=== PATIENT | male | born 1965 | race Caucasian/White ===

== ENCOUNTER 2016-11-17 04:51 | Emergency (ER) | payer SELFPAY ==
[~2016-11-17] VITALS: Ht 175.3 cm; Wt 88.6 kg
[2016-11-17] MEDS ORDERED: METF500T7 PO (05:06)
[2016-11-17] MEDS ORDERED: GLIP5 PO (05:06)
[2016-11-17 05:12] LABS: GLUCOSE,POINT OF CARE 271 MG/DL (70-110)
[2016-11-17] MEDS ORDERED: LIDOCAINE HCL BUFFERED 1% 20 ML VIAL INJ ONE (06:30)
[2016-11-17 06:56] VITALS: BP 128/78
[2016-11-17] MEDS ORDERED: POVIDONE-IODINE 10% 120 ML SOLUTION TP ONE (07:00)
[2016-11-17] MEDS ORDERED: OxyCODONE HCL/ACETAMINOPHEN 5-325 MG TABLET PO ONE (07:30)
[2016-11-17] MEDS ORDERED: SULFAMETHOX/TRIMETH DS 800-160 MG/TABLET PO ONE (07:30)
[2016-11-17] MEDS ORDERED: CEPHALEXIN MONOHYDRATE 500 MG CAPSULE PO ONE (07:30)
== END 2016-11-17 07:38 | disposition home or self-care (01) ==
LOC: EMS 04:52
DX: L02.31 Cutaneous abscess of buttock (principal); E11.9 Type 2 diabetes mellitus without complications; F12.90 Cannabis use, unspecified, uncomplicated; F15.90 Other stimulant use, unspecified, uncomplicated; Z87.891 Personal history of nicotine dependence
CPT/HCPCS: 10060; 82962; 99284; J3490

== ENCOUNTER 2017-03-11 15:38 | Outpatient (RCR) | payer BC ==
[~2017-03-11 15:38] MED LIST: GLIP5 PO; METF500T7 PO
== END 2017-04-03 | disposition home or self-care (01) ==
LOC: SPT 15:38
PROVIDERS: ATTEND Internal Medicine
DX: F80.9 Developmental disorder of speech and language, unspecified (principal); S06.9X0D Unspecified intracranial injury without loss of consciousness, subsequent encounter; X58.XXXD Exposure to other specified factors, subsequent encounter
CPT/HCPCS: 92507; 92523

== ENCOUNTER 2017-04-13 12:26 | Inpatient (IN) | payer BC ==
[~2017-04-13] VITALS: Ht 175.3 cm; Wt 79.7 kg
[~2017-04-13 12:26] MED LIST changes: -ATOR20TA86 PO; -BACTDSB PO; -GLYB5 PO; -HUM10VIA SQ; -METF500T4 PO
[2017-04-13 12:42] LABS: GLUCOSE,POINT OF CARE 302 MG/DL (70-110)
[2017-04-13] MEDS ORDERED: ATOR20TA86 PO (12:44)
[2017-04-13] MEDS ORDERED: HUM10VIA SQ (12:44)
[2017-04-13] MEDS ORDERED: GLYB5 PO (12:44)
[2017-04-13] MEDS ORDERED: METF500T4 PO (12:51)
[2017-04-13 12:53] LABS: BASOPHILS % (AUTO) 0.2 % (0.0-2.0); EOSINOPHILS % (AUTO) 1.8 % (1.0-6.0); HEMATOCRIT 32.1 % (41-53); HEMOGLOBIN 10.4 g/dL (13.5-17.5); LYMPHOCYTES # (AUTO) 1.9 K/uL (1.0-4.8); LYMPHOCYTES % (AUTO) 10.6 % (22.0-44.0); MEAN CORPUSCULAR HEMOGLOBIN 25.6 pg (26.0-34.0); MEAN CORPUSCULAR HGB CONC 32.5 G/dL (31.0-37.0); MEAN CORPUSCULAR VOLUME 79 fL (80-100); MONOCYTES # (AUTO) 0.9 K/uL (0.1-1.0); MONOCYTES % (AUTO) 5.2 % (2.0-9.0); NEUTROPHILS # (AUTO) 14.3 K/uL (1.8-7.7); NEUTROPHILS % (AUTO) 82.2 % (40.0-70.0); PLATELET COUNT (AUTO) 291 K/uL (150-450); RED BLOOD CELL COUNT(AUTO) 4.07 MIL/uL (4.50-5.90); RED CELL DISTRIBUTION WIDTH 16.3 % (11.5-14.5); WHITE BLOOD COUNT (AUTO) 17.4 K/uL (4.5-11.0)
[2017-04-13 13:06] LABS: INR 1.2 (0.9-1.1); PROTHROMBIN TIME 12.8 SEC (9.4-11.6)
[2017-04-13 13:14] LABS: ANION GAP 7 mmol/L (8-16); CALCIUM, TOTAL 9.3 mg/dL (8.8-10.5); CARBON DIOXIDE 31 mmol/L (22-29); CHLORIDE 94 mmol/L (98-107); CREATININE 0.96 mg/dL (0.60-1.30); GLOMERULAR FILTR. RATE CALC > 60 mL/min (>60); POTASSIUM 4.2 mmol/L (3.5-5.1); SODIUM SERUM 132 mmol/L (136-145); UREA NITROGEN, BLOOD 12 mg/dL (7-18)
[2017-04-13 13:19] LABS: ALANINE AMINOTRANSFERASE 43 U/L (12-78); ALBUMIN 2.7 g/dL (3.4-5.0); ASPARTATE AMINOTRANSFERASE 55 U/L (15-37); BILIRUBIN,TOTAL 0.5 mg/dL (0.1-1.0); TOTAL PROTEIN, SERUM 8.6 g/dL (6.4-8.2)
[2017-04-13] MEDS ORDERED: ONDANSETRON HCL 4 MG/2 ML VIAL IVP ONE (15:15)
[2017-04-13] MEDS ORDERED: MORPHINE SULFATE 4 MG/ML SYRINGE IVP ONE (15:15)
[2017-04-13] MEDS ORDERED: MORPHINE SULFATE 4 MG/ML SYRINGE IVP PRN (15:30)
[2017-04-13] MEDS ORDERED: 0.9% SODIUM CHLORIDE 10 ML SYRINGE IVP PRN (15:30)
[2017-04-13] MEDS ORDERED: ONDANSETRON HCL 4 MG/2 ML VIAL IVP PRN (15:30)
[2017-04-13] MEDS ORDERED: ACETAMINOPHEN 325 MG TABLET PO PRN ×2 (15:30→20:45)
[2017-04-13] MEDS ORDERED: HYDROCODONE/ACETAMINOPHEN 5-325 MG TABLET PO PRN (15:30)
[2017-04-13 16:10] VITALS: BP 112/60
[2017-04-13] MEDS ORDERED: DEXTROSE 50%-WATER 25 GM/50 ML SYRINGE IVP PRN (16:30)
[2017-04-13] MEDS: INSULIN ASPART 100 UNITS/ML SQ PRN ×2 (18:04→21:18)
[2017-04-13] MEDS ORDERED: INFLUENZA VIRUS VACCINE QVS 2017-18 (3YR+)/PF 60 MCG/0.5 ML SYRINGE IM ONE (19:15)
[2017-04-13 19:21] VITALS: BP 109/56
[2017-04-13] MEDS ORDERED: MAGNESIUM HYDROXIDE SUSPENSION 30 ML UDCUP PO PRN (20:45)
[2017-04-13] MEDS: DOCUSATE SODIUM 100 MG CAPSULE PO SCH (21:20)
[2017-04-13 21:32] LABS: GLUCOSE,POINT OF CARE 192 MG/DL (70-110)
[2017-04-13 22:30] LABS: APPEARANCE,URINE CLEAR (CLEAR); GLUCOSE, URINE (UA) NEGATIVE (NEGATIVE); KETONES,URINE NEGATIVE (NEGATIVE); LEUKOCYTE ESTERASE ,URINE SMALL (NEGATIVE); OCCULT BLOOD,URINE NEGATIVE (NEGATIVE); PROTEIN,URINE TRACE (NEGATIVE)
[2017-04-13 22:31] LABS: ADD UA MICROSCOPIC YES
[2017-04-13 22:32] LABS: RBC,URINE 0-2 /HPF (0-2); SQUAMOUS EPITHELIAL CELL,UR Few /LPF (None Seen)
[2017-04-13 23:31] VITALS: BP 100/52
[2017-04-14 04:00] VITALS: BP 97/53
[2017-04-14 05:52] LABS: GLUCOSE COMMENT 1 Received Meds; GLUCOSE,POINT OF CARE 215 MG/DL (70-110)
[2017-04-14 07:10] LABS: BASOPHILS % (AUTO) 0.3 % (0.0-2.0); HEMATOCRIT 27.7 % (41-53); HEMOGLOBIN 9.1 g/dL (13.5-17.5); LYMPHOCYTES # (AUTO) 1.5 K/uL (1.0-4.8); LYMPHOCYTES % (AUTO) 10.5 % (22.0-44.0); MEAN CORPUSCULAR HEMOGLOBIN 25.6 pg (26.0-34.0); MEAN CORPUSCULAR HGB CONC 32.8 G/dL (31.0-37.0); MEAN CORPUSCULAR VOLUME 78 fL (80-100); MONOCYTES # (AUTO) 1.2 K/uL (0.1-1.0); MONOCYTES % (AUTO) 8.3 % (2.0-9.0); NEUTROPHILS # (AUTO) 11.2 K/uL (1.8-7.7); NEUTROPHILS % (AUTO) 77.9 % (40.0-70.0); PLATELET COUNT (AUTO) 224 K/uL (150-450); RED BLOOD CELL COUNT(AUTO) 3.54 MIL/uL (4.50-5.90); RED CELL DISTRIBUTION WIDTH 16.5 % (11.5-14.5); WHITE BLOOD COUNT (AUTO) 14.4 K/uL (4.5-11.0)
[2017-04-14 07:15] VITALS: BP 114/56
[2017-04-14 07:19] LABS: INR 1.2 (0.9-1.1); PROTHROMBIN TIME 12.4 SEC (9.4-11.6)
[2017-04-14 07:31] LABS: ALANINE AMINOTRANSFERASE 32 U/L (12-78); ALBUMIN 2.2 g/dL (3.4-5.0); ANION GAP 5 mmol/L (8-16); ASPARTATE AMINOTRANSFERASE 36 U/L (15-37); BILIRUBIN,TOTAL 0.3 mg/dL (0.1-1.0); CALCIUM, TOTAL 8.8 mg/dL (8.8-10.5); CARBON DIOXIDE 32 mmol/L (22-29); CHLORIDE 97 mmol/L (98-107); CREATININE 0.69 mg/dL (0.60-1.30); GLOMERULAR FILTR. RATE CALC > 60 mL/min (>60); SODIUM SERUM 134 mmol/L (136-145); TOTAL PROTEIN, SERUM 7.5 g/dL (6.4-8.2); UREA NITROGEN, BLOOD 10 mg/dL (7-18)
[2017-04-14] MEDS: PANTOPRAZOLE SODIUM 40 MG DR TABLET PO SCH (08:33)
[2017-04-14] MEDS: DOCUSATE SODIUM 100 MG CAPSULE PO SCH ×2 (08:33→20:18)
[2017-04-14] MEDS ORDERED: GADOBUTROL 1 MMOL/ML 10 ML VIAL IVP ONE (09:39)
[2017-04-14] MEDS: OxyCODONE HCL/ACETAMINOPHEN 5-325 MG TABLET PO PRN ×2 (11:35→18:23)
[2017-04-14 11:43] VITALS: BP 109/55
[2017-04-14] MEDS: INSULIN ASPART 100 UNITS/ML SQ PRN ×3 (12:45→20:25)
[2017-04-14 16:08] VITALS: BP 110/60
[2017-04-14 20:00] VITALS: BP 104/51
[2017-04-14 23:15] VITALS: BP 112/60
[2017-04-15 01:48] LABS: GLUCOSE,POINT OF CARE 194 MG/DL (70-110)
[2017-04-15 01:52] LABS: GLUCOSE COMMENT 1 Received Meds; GLUCOSE,POINT OF CARE 196 MG/DL (70-110)
[2017-04-15 01:53] LABS: GLUCOSE COMMENT 1 Received Meds; GLUCOSE,POINT OF CARE 186 MG/DL (70-110)
[2017-04-15 01:53] LABS: GLUCOSE,POINT OF CARE 218 MG/DL (70-110)
[2017-04-15 04:21] VITALS: BP 109/63
[2017-04-15] MEDS: OxyCODONE HCL/ACETAMINOPHEN 5-325 MG TABLET PO PRN ×2 (05:35→19:44)
[2017-04-15] MEDS: INSULIN ASPART 100 UNITS/ML SQ PRN ×4 (05:38→19:49)
[2017-04-15 06:51] LABS: BASOPHILS # (AUTO) 0.06 K/uL (0.00-0.20); BASOPHILS % (AUTO) 0.4 % (0.0-2.0); EOSINOPHILS # (AUTO) 0.35 K/uL (0.00-0.70); EOSINOPHILS % (AUTO) 2.29 % (1.0-6.0); HEMATOCRIT 26.8 % (41-53); HEMOGLOBIN 8.8 g/dL (13.5-17.5); LYMPHOCYTES # (AUTO) 1.8 K/uL (1.0-4.8); LYMPHOCYTES % (AUTO) 11.3 % (22.0-44.0); MEAN CORPUSCULAR HEMOGLOBIN 25.4 pg (26.0-34.0); MEAN CORPUSCULAR HGB CONC 32.7 G/dL (31.0-37.0); MEAN CORPUSCULAR VOLUME 78 fL (80-100); MONOCYTES # (AUTO) 1.1 K/uL (0.1-1.0); MONOCYTES % (AUTO) 7.1 % (2.0-9.0); NEUTROPHILS # (AUTO) 12.2 K/uL (1.8-7.7); PLATELET COUNT (AUTO) 184 K/uL (150-450); RED BLOOD CELL COUNT(AUTO) 3.45 MIL/uL (4.50-5.90); RED CELL DISTRIBUTION WIDTH 15.8 % (11.5-14.5); WHITE BLOOD COUNT (AUTO) 15.5 K/uL (4.5-11.0)
[2017-04-15 07:43] VITALS: BP 116/54
[2017-04-15 08:30] LABS: RBC MORPHOLOGY COMMENT ABNORMAL RBC MORPH
[2017-04-15 09:00] LABS: GLUCOSE COMMENT 1 Received Meds; GLUCOSE,POINT OF CARE 203 MG/DL (70-110)
[2017-04-15] MEDS: PANTOPRAZOLE SODIUM 40 MG DR TABLET PO SCH (09:46)
[2017-04-15] MEDS: DOCUSATE SODIUM 100 MG CAPSULE PO SCH ×2 (09:46→19:44)
[2017-04-15 11:45] VITALS: BP 101/59
[2017-04-15 15:32] LABS: GLUCOSE,POINT OF CARE 186 MG/DL (70-110)
[2017-04-15 15:48] VITALS: BP 113/57
[2017-04-15] MEDS: CEPHALEXIN MONOHYDRATE 500 MG CAPSULE PO SCH ×2 (16:13→23:37)
[2017-04-15 20:22] VITALS: BP 105/53
[2017-04-16] VITALS (7 sets, daily range): BP systolic 96–114; BP diastolic 43–59
[2017-04-16] MEDS: INSULIN ASPART 100 UNITS/ML SQ PRN ×4 (05:54→20:56)
[2017-04-16 06:07] LABS: BASOPHILS % (AUTO) 0.5 % (0.0-2.0); EOSINOPHILS % (AUTO) 2.1 % (1.0-6.0); HEMATOCRIT 26.8 % (41-53); HEMOGLOBIN 8.9 g/dL (13.5-17.5); LYMPHOCYTES # (AUTO) 1.7 K/uL (1.0-4.8); LYMPHOCYTES % (AUTO) 10.6 % (22.0-44.0); MEAN CORPUSCULAR HEMOGLOBIN 26.5 pg (26.0-34.0); MEAN CORPUSCULAR HGB CONC 33.3 G/dL (31.0-37.0); MEAN CORPUSCULAR VOLUME 80 fL (80-100); MONOCYTES # (AUTO) 1.2 K/uL (0.1-1.0); MONOCYTES % (AUTO) 7.1 % (2.0-9.0); NEUTROPHILS # (AUTO) 13.2 K/uL (1.8-7.7); NEUTROPHILS % (AUTO) 79.7 % (40.0-70.0); PLATELET COUNT (AUTO) 166 K/uL (150-450); RED BLOOD CELL COUNT(AUTO) 3.36 MIL/uL (4.50-5.90); RED CELL DISTRIBUTION WIDTH 16.1 % (11.5-14.5); WHITE BLOOD COUNT (AUTO) 16.5 K/uL (4.5-11.0)
[2017-04-16 06:53] LABS: GLUCOSE COMMENT 1 Juice/Food/D50 Given; GLUCOSE,POINT OF CARE 216 MG/DL (70-110)
[2017-04-16 06:53] LABS: GLUCOSE,POINT OF CARE 167 MG/DL (70-110)
[2017-04-16] MEDS: DOCUSATE SODIUM 100 MG CAPSULE PO SCH ×2 (08:13→20:52)
[2017-04-16] MEDS: PANTOPRAZOLE SODIUM 40 MG DR TABLET PO SCH (08:13)
[2017-04-16] MEDS: CEPHALEXIN MONOHYDRATE 500 MG CAPSULE PO SCH (08:13)
[2017-04-16] MEDS: OxyCODONE HCL/ACETAMINOPHEN 5-325 MG TABLET PO PRN ×2 (11:37→19:44)
[2017-04-16] MEDS: SULFAMETHOX/TRIMETH DS 800-160 MG/TABLET PO SCH ×2 (11:37→20:52)
[2017-04-16] MEDS: LACTOBACILLUS ACIDOPHILUS/BULGARICUS TABLET PO SCH (20:53)
[2017-04-17] MEDS: OxyCODONE HCL/ACETAMINOPHEN 5-325 MG TABLET PO PRN (02:11)
[2017-04-17 03:34] VITALS: BP 94/46
[2017-04-17 05:27] LABS: GLUCOSE COMMENT 1 Received Meds; GLUCOSE,POINT OF CARE 257 MG/DL (70-110)
[2017-04-17] MEDS: INSULIN ASPART 100 UNITS/ML SQ PRN (05:57)
[2017-04-17 06:03] LABS: BASOPHILS % (AUTO) 0.3 % (0.0-2.0); EOSINOPHILS % (AUTO) 1.6 % (1.0-6.0); HEMATOCRIT 28.8 % (41-53); HEMOGLOBIN 9.3 g/dL (13.5-17.5); LYMPHOCYTES # (AUTO) 1.9 K/uL (1.0-4.8); LYMPHOCYTES % (AUTO) 11.4 % (22.0-44.0); MEAN CORPUSCULAR HEMOGLOBIN 25.3 pg (26.0-34.0); MEAN CORPUSCULAR HGB CONC 32.2 G/dL (31.0-37.0); MEAN CORPUSCULAR VOLUME 78 fL (80-100); MONOCYTES # (AUTO) 1.3 K/uL (0.1-1.0); NEUTROPHILS # (AUTO) 13.1 K/uL (1.8-7.7); NEUTROPHILS % (AUTO) 78.7 % (40.0-70.0); PLATELET COUNT (AUTO) 149 K/uL (150-450); RED BLOOD CELL COUNT(AUTO) 3.68 MIL/uL (4.50-5.90); RED CELL DISTRIBUTION WIDTH 16.2 % (11.5-14.5); WHITE BLOOD COUNT (AUTO) 16.7 K/uL (4.5-11.0)
[2017-04-17 06:33] LABS: ANION GAP 4 mmol/L (8-16); CARBON DIOXIDE 31 mmol/L (22-29); CHLORIDE 100 mmol/L (98-107); CREATININE 0.81 mg/dL (0.60-1.30); GLOMERULAR FILTR. RATE CALC > 60 mL/min (>60); POTASSIUM 4.2 mmol/L (3.5-5.1); SODIUM SERUM 135 mmol/L (136-145); UREA NITROGEN, BLOOD 9 mg/dL (7-18)
[2017-04-17 06:38] LABS: GLUCOSE COMMENT 1 Received Meds; GLUCOSE,POINT OF CARE 178 MG/DL (70-110)
[2017-04-17 06:48] LABS: GLUCOSE,POINT OF CARE 240 MG/DL (70-110)
[2017-04-17 06:48] LABS: GLUCOSE,POINT OF CARE 236 MG/DL (70-110)
[2017-04-17 06:48] LABS: GLUCOSE,POINT OF CARE 244 MG/DL (70-110)
[2017-04-17] MEDS ORDERED: BACTDSB PO ×2 (07:14→09:09)
[2017-04-17 07:32] VITALS: BP 111/51
[2017-04-17] MEDS: SULFAMETHOX/TRIMETH DS 800-160 MG/TABLET PO SCH (08:03)
[2017-04-17] MEDS: DOCUSATE SODIUM 100 MG CAPSULE PO SCH (08:03)
[2017-04-17] MEDS: PANTOPRAZOLE SODIUM 40 MG DR TABLET PO SCH (08:03)
[2017-04-17] MEDS: LACTOBACILLUS ACIDOPHILUS/BULGARICUS TABLET PO SCH (08:03)
== END 2017-04-17 10:50 | disposition home or self-care (01) | DRG 300 ==
LOC: EMS 12:30 → 6N 15:15
PROVIDERS: ADMIT Internal Medicine; ATTEND Internal Medicine
DX: I77.1 Stricture of artery (principal); N39.0 Urinary tract infection, site not specified; E11.9 Type 2 diabetes mellitus without complications; M79.81 Nontraumatic hematoma of soft tissue; F12.90 Cannabis use, unspecified, uncomplicated; I10 Essential (primary) hypertension; Z87.820 Personal history of traumatic brain injury; Z79.84 Long term (current) use of oral hypoglycemic drugs; Z79.899 Other long term (current) drug therapy; Z79.4 Long term (current) use of insulin
CPT/HCPCS: 70450; 73720; 82962; 87086; 93005; 96374; 96375; 99285; A9585; J2270; J2405

== ENCOUNTER → 2017-04-13 | Outpatient (CLI) | payer BC ==
[~2017-04-13] MED LIST changes: +ATOR20TA86 PO; +BACTDSB PO; +GLYB5 PO; +HUM10VIA SQ; +METF500T4 PO
== END | disposition home or self-care (01) ==
LOC: RADPV 11:23
PROVIDERS: ATTEND Internal Medicine
DX: I70.202 Unspecified atherosclerosis of native arteries of extremities, left leg (principal)
CPT/HCPCS: 93971